=== PATIENT | female | born 1975 | race Caucasian/White ===

== ENCOUNTER 2016-04-18 21:59 | Emergency (ER) | payer OTHER ==
[~2016-04-18 21:59] MED LIST: LISINOPRIL10 MG; PHENERGAN W/CO120 ML PO
[2016-04-18 23:10] LABS: INFLUENZA A NEG (NEG); INFLUENZA B NEG (NEG)
== END 2016-04-18 23:25 | disposition home or self-care (01) ==
LOC: SED 21:59
PROVIDERS: Emergency Medicine
DX: J06.9 Acute upper respiratory infection, unspecified (principal); I10 Essential (primary) hypertension; G43.909 Migraine, unspecified, not intractable, without status migrainosus; E28.2 Polycystic ovarian syndrome
CPT/HCPCS: 87804; 99282